=== PATIENT | female | born 1960 | race Caucasian/White ===

== ENCOUNTER 2021-10-20 01:03 | Observation (INO) | payer BC, MEDICARE ==
[2021-10-20 01:29] LABS: #Eosinphils 0.1 10x3/uL (0.0-0.5); #Monocytes 0.5 10x3/uL (0.0-1.1); #Neutrophils 2.2 10x3/uL (1.5-8.4); %Basophils 0.6 % (0.0-2.0); %Eosinophils 1.9 % (0.0-6.0); %Lymphocytes 47.2 % (18.0-47.0); %Neutrophils 39.9 % (40.0-75.0); Hemoglobin 13.5 g/dL (12.0-15.5); Mean Corpuscular HGB CONC 34.1 g/dL (32.0-36.0); Mean Corpuscular Hemoglobin 33.3 pg (27.0-33.0); Mean Corpuscular Volume 97.8 fl (81.6-98.3); Platelet Count 212 10x3/uL (150-450); RBC Distribution Width 13.9 % (11.5-14.5); Red Blood Cell (RBC) Count 4.05 10x6/uL (3.90-5.03); White Blood Cell (WBC) Count 5.4 10x3/uL (3.5-10.5)
[2021-10-20 01:43] LABS: Anion Gap 14 mmol/L (10-20); BUN (Urea Nitrogen) 15 mg/dL (9.8-20.1); Calc. Creatinine Clearance 0 mL/min (70-130); Carbon Dioxide 27 mmol/L (23-31); Chloride 104 mmol/L (98-107); Potassium 4.1 mmol/L (3.5-5.1); Sodium 141 mmol/L (136-145)
[2021-10-20 01:44] LABS: ALT (SGPT) 72 U/L (8-55); AST (SGOT) 52 U/L (5-34); Albumin 4.4 g/dL (3.4-4.8); Alkaline Phosphatase 55 U/L (40-110); Bilirubin, Total 0.5 mg/dL (0.2-1.2); Globulin 2.8 g/dL (2.4-3.5); Glucose 116 mg/dL (80-115); Protein, Total 7.2 g/dL (5.8-8.1)
[2021-10-20] MEDS ORDERED: Nitroglycerin 2% Ointment 1 INCH/1 GM Packet ONE (01:53)
[2021-10-20] MEDS ORDERED: Acetaminophen 325 MG TAB PO PRN (02:42)
[2021-10-20] MEDS ORDERED: HYDROcodone/Acetaminophen 5/325 mg Tablet PO PRN (02:42)
[2021-10-20] MEDS ORDERED: Guaifenesin DM 100-10/5 ML UDCUP PO PRN (02:42)
[2021-10-20] MEDS ORDERED: Ondansetron PF 4 MG/2 ML Vial IVP PRN (02:42)
[2021-10-20] MEDS ORDERED: Calcium Carbonate 500 MG ChewTAB PO PRN (02:42)
[2021-10-20] MEDS ORDERED: Zolpidem Tartrate 5 MG TAB PO PRN (02:42)
[2021-10-20] MEDS ORDERED: Senokot S 8.6-50 MG TAB PO PRN (02:42)
[2021-10-20] MEDS ORDERED: Nitroglycerin 0.4 MG TAB (25 Tab Bottle) SL PRN (02:42)
[2021-10-20] MEDS ORDERED: hydrALAZINE 20 MG/ML VIAL SLOW IVP PRN (02:48)
[2021-10-20] MEDS ORDERED: Enoxaparin Sodium 80 MG/0.8 ML SYRINGE SC SCH (03:00)
[2021-10-20 03:48] LABS: SARS-CoV-2 NAA Rapid Test Not Detected (NotDetected)
[2021-10-20 04:41] VITALS: BMI 28.3
[2021-10-20] MEDS ORDERED: Levothyroxine Sodium 112 MCG TAB PO SCH (06:00)
[2021-10-20] MEDS ORDERED: Clopidogrel Bisulfate 75 MG TAB PO SCH (09:00)
[2021-10-20] MEDS ORDERED: Rosuvastatin 20 MG TAB PO SCH (09:00)
[2021-10-20] MEDS ORDERED: Icosapent Ethyl 1 GM CAPSULE PO SCH (09:00)
[2021-10-20] MEDS ORDERED: Aspirin Chewable 81 MG TAB PO SCH (09:00)
[2021-10-20] MEDS ORDERED: Famotidine 20 MG TAB PO SCH (09:00)
[2021-10-20] MEDS ORDERED: Ezetimibe 10 MG TAB PO SCH (09:00)
[2021-10-20 10:21] LABS: ALT (SGPT) 66 U/L (8-55); AST (SGOT) 47 U/L (5-34); Alkaline Phosphatase 49 U/L (40-110); Anion Gap 12 mmol/L (10-20); BUN (Urea Nitrogen) 13 mg/dL (9.8-20.1); Bilirubin, Total 0.5 mg/dL (0.2-1.2); Calc. Creatinine Clearance 89 mL/min (70-130); Calcium 9.7 mg/dL (7.8-10.44); Carbon Dioxide 25 mmol/L (23-31); Cardiac Risk 3.7 (Less than 4.5); Chloride 106 mmol/L (98-107); Cholesterol 154 mg/dl (< 200 Desired); Globulin 2.9 g/dL (2.4-3.5); Glucose 106 mg/dL (80-115); HDL Cholesterol 42 mg/dL (>60 Neg Risk); LDL Cholesterol, Calculated 91 mg/dL; Potassium 4.3 mmol/L (3.5-5.1); Protein, Total 6.9 g/dL (5.8-8.1); Sodium 139 mmol/L (136-145); Triglycerides 103 mg/dL (Less than 150)
[2021-10-20 19:04] VITALS: BP 101/69; TEMP 98.9
[2021-10-20] MEDS ORDERED: Enoxaparin Sodium 40 MG/0.4 ML SYRINGE SC SCH (21:00)
== END 2021-10-20 18:47 | disposition home or self-care (01) ==
LOC: CSHERS 01:03 → CSHTELE 03:54
PROVIDERS: ADMIT Student in an Organized Health Care Education/Training Program; ATTEND Nurse Practitioner Family
DX: I25.118 Atherosclerotic heart disease of native coronary artery with other forms of angina pectoris (principal); E78.5 Hyperlipidemia, unspecified; I10 Essential (primary) hypertension; E03.9 Hypothyroidism, unspecified; Z95.5 Presence of coronary angioplasty implant and graft; Z95.1 Presence of aortocoronary bypass graft; Z87.891 Personal history of nicotine dependence; F41.9 Anxiety disorder, unspecified
CPT/HCPCS: 71045; 80053 ×2; 80061; 84484 ×2; 85025; 93005; 93306; 99285; U0002; 36415; 93010; 96372; G0378; J1650

== ENCOUNTER 2022-01-24 16:00 | Outpatient (CLI) | payer MEDICARE, BC ==
[2022-01-24 17:08] LABS: Hemoglobin 14.3 g/dL (12.0-15.5); Mean Corpuscular HGB CONC 33.4 g/dL (32.0-36.0); Mean Corpuscular Hemoglobin 32.5 pg (27.0-33.0); Mean Corpuscular Volume 97.3 fl (81.6-98.3); Mean Platelet Volume 10.1 fl (7.4-10.4); Platelet Count 264 10x3/uL (150-450); RBC Distribution Width 12.1 % (11.5-14.5); White Blood Cell (WBC) Count 6.2 10x3/uL (3.5-10.5)
[2022-01-24 17:18] LABS: PTT 26.4 sec (22.0-33.0); Prothrombin Time 10.9 sec (9.5-12.1)
[2022-01-24 17:23] LABS: Anion Gap 16 mmol/L (10-20); BUN (Urea Nitrogen) 14 mg/dL (9.8-20.1); Calc. Creatinine Clearance 0 mL/min (70-130); Calcium 9.3 mg/dL (7.8-10.44); Carbon Dioxide 24 mmol/L (23-31); Chloride 104 mmol/L (98-107); Estimated GFR 80; Glucose 82 mg/dL (80-115); Potassium 4.4 mmol/L (3.5-5.1); Sodium 140 mmol/L (136-145)
== END 2022-01-24 16:01 | disposition home or self-care (01) ==
LOC: CSHLAB 16:00
PROVIDERS: ATTEND Specialist
DX: Z01.812 Encounter for preprocedural laboratory examination (principal); Z20.822 Contact with and (suspected) exposure to COVID-19
CPT/HCPCS: 80048; 85027; 85610; 85730; 87811

== ENCOUNTER 2022-01-26 07:37 | Observation (INO) | payer MEDICARE, BC ==
[2022-01-26] MEDS ORDERED: Iopamidol 300 61% 50 ML VIAL FS ONE (08:00)
[2022-01-26] MEDS ORDERED: Iopamidol 300 61% 100 ML VIAL FS ONE (08:00)
[2022-01-26] MEDS ORDERED: Aspirin 325 MG TAB ONE (08:28)
[2022-01-26] MEDS ORDERED: Ascorbic Acid 500 mg Chewable Tablet ONE (08:28)
[2022-01-26] MEDS ORDERED: Heparin 10,000 UNITS/ 10 ML VIAL ONE (09:29)
[2022-01-26] MEDS ORDERED: Adenosine 6 MG/2 ML VIAL ONE (09:29)
[2022-01-26] MEDS ORDERED: Nitroglycerin 50 MG/250 ML BOT 250 ML ONE (09:29)
[2022-01-26] MEDS ORDERED: Lidocaine 1% PF 5 ML VIAL ONE (09:41)
[2022-01-26] MEDS ORDERED: Fentanyl 100 MCG/2 ML VIAL ONE (10:48)
[2022-01-26] MEDS ORDERED: Midazolam HCl 2 mg/2 ml Vial ONE (10:49)
[2022-01-26] MEDS ORDERED: Lidocaine 1% 20 ML MDV ONE (10:52)
[2022-01-26] MEDS ORDERED: Acetaminophen/Codeine 30-300mg Tablet PO PRN ×2 (13:58)
[2022-01-26] MEDS ORDERED: Nitroglycerin 0.4 MG TAB (25 Tab Bottle) SL PRN (14:00)
[2022-01-26] MEDS ORDERED: Sodium Chloride 0.9% 1,000 ML IV SCH (14:00)
[2022-01-26] MEDS ORDERED: HYDROcodone/Acetaminophen 7.5/325 mg Tablet PO PRN (14:00)
[2022-01-26] MEDS ORDERED: Amlodipine 5 MG TAB PO SCH (15:00)
[2022-01-26 17:37] VITALS: BP 141/99; TEMP 98.4
[2022-01-27] MEDS ORDERED: Levothyroxine Sodium 112 MCG TAB PO SCH (06:00)
[2022-01-27] MEDS ORDERED: Ezetimibe 10 MG TAB PO SCH (09:00)
[2022-01-27] MEDS ORDERED: Amlodipine 5 MG TAB PO SCH (09:00)
[2022-01-27] MEDS ORDERED: Clopidogrel Bisulfate 75 MG TAB PO SCH (09:00)
[2022-01-27] MEDS ORDERED: Aspirin Chewable 81 MG TAB PO SCH (09:00)
[2022-01-27] MEDS ORDERED: Icosapent Ethyl 1 GM CAPSULE PO SCH (09:00)
[2022-01-27] MEDS ORDERED: Rosuvastatin 20 MG TAB PO SCH (09:00)
== END 2022-01-26 18:32 | disposition home or self-care (01) ==
LOC: CSHSDC 07:37 → CSHTELE 14:29
PROVIDERS: ADMIT Specialist; ATTEND Specialist
PROC: 027034Z Dilation of Coronary Artery, One Artery with Drug-eluting Intraluminal Device, Percutaneous Approach (ICD-10-PCS; principal; 2022-01-26)
PROC: 4A023N7 Measurement of Cardiac Sampling and Pressure, Left Heart, Percutaneous Approach (ICD-10-PCS; 2022-01-26)
PROC: B2111ZZ Fluoroscopy of Multiple Coronary Arteries using Low Osmolar Contrast (ICD-10-PCS; 2022-01-26)
PROC: B2181ZZ Fluoroscopy of Left Internal Mammary Bypass Graft using Low Osmolar Contrast (ICD-10-PCS; 2022-01-26)
PROC: B2131ZZ Fluoroscopy of Multiple Coronary Artery Bypass Grafts using Low Osmolar Contrast (ICD-10-PCS; 2022-01-26)
DX: I25.118 Atherosclerotic heart disease of native coronary artery with other forms of angina pectoris (principal); T82.855A Stenosis of coronary artery stent, initial encounter; I25.84 Coronary atherosclerosis due to calcified coronary lesion; I10 Essential (primary) hypertension; E78.2 Mixed hyperlipidemia; E03.9 Hypothyroidism, unspecified; I25.2 Old myocardial infarction; M06.9 Rheumatoid arthritis, unspecified; Z87.891 Personal history of nicotine dependence; Z79.02 Long term (current) use of antithrombotics/antiplatelets; Z79.82 Long term (current) use of aspirin; Z79.890 Hormone replacement therapy; Z79.899 Other long term (current) drug therapy; Z95.1 Presence of aortocoronary bypass graft; Z95.5 Presence of coronary angioplasty implant and graft; Y71.1 Therapeutic (nonsurgical) and rehabilitative cardiovascular devices associated with adverse incidents
CPT/HCPCS: 36215; 36225; 37252; 75710; 92978; 93005; 93459; 97139; C1725; C1753; C1760 ×2; C1769 ×3; C1874; C1887; C1894; C9604; 92937; 93010; 99152; 99153; G0378; J0153; J1644; J2250; J3010; Q9967

== ENCOUNTER 2023-08-20 09:43 | Day surgery (SDC) | payer BC ==
[2023-08-16 11:20] VITALS: BMI 26.5
[2023-08-20] MEDS ORDERED: PROPOFOL 40 ML ONE (11:24)
[2023-08-20] MEDS ORDERED: ePHEDrine Sulfate 50 MG/10 ML VIAL ONE (12:07)
[2023-08-20] MEDS ORDERED: PROPOFOL 20 ML ONE (12:24)
== END 2023-08-20 13:30 | disposition home or self-care (01) ==
LOC: CSHSDC 09:43
PROVIDERS: ATTEND Surgery
DX: Z12.11 Encounter for screening for malignant neoplasm of colon (principal); D12.4 Benign neoplasm of descending colon; K64.8 Other hemorrhoids; I10 Essential (primary) hypertension; M06.9 Rheumatoid arthritis, unspecified; E03.9 Hypothyroidism, unspecified; F41.9 Anxiety disorder, unspecified; E78.00 Pure hypercholesterolemia, unspecified; I25.10 Atherosclerotic heart disease of native coronary artery without angina pectoris; Z79.899 Other long term (current) drug therapy; Z87.891 Personal history of nicotine dependence; Z98.51 Tubal ligation status; Z98.890 Other specified postprocedural states; Z95.1 Presence of aortocoronary bypass graft
CPT/HCPCS: 88305; J2704